=== PATIENT | female | born 1955 | race Caucasian/White ===

== ENCOUNTER 2017-04-02 18:38 | Emergency (ER) | payer MEDICAID ==
[~2017-04-02] VITALS: Ht 162.6 cm; Wt 67.1 kg
[~2017-04-02 18:38] MED LIST: ASPI81TA2 PO; ATEN50TA PO; LORA-258 PO; METF500T4 PO; TELM80TA2 PO
--- NOTE | 2017-04-02 19:05 | NUR ---
PT BIB SON, PT AMBULATORY TO ER BED 2 C/O LEFT FOOT PAIN S/P DANCING 2 DAYS AGO. PT AOX3 RR EVEN AND UNLABORED. NO SOB NOTED. NAD NOTED. NO NVD AT THIS TIME. PT WAITING FOR MD LYNCH.
--- NOTE | 2017-04-02 19:05 | NUR ---
PAC PRUSHA AT BEDSIDE FOR EVAL.
[2017-04-02] MEDS ORDERED: ACETAMINOPHEN W/ CODEINE#3 1 EA TABLET ONE (19:15)
--- NOTE | 2017-04-02 19:18 | NUR ---
PT REFUSED TYLENOL -COD 3. STATES "IT MAKES MY STOMACH HURT" JOANNA DIXON MADE AWARE.
--- NOTE | 2017-04-02 19:24 | NUR ---
RADIOLOGY AT BEDSIDE FOR LEFT FOOT XRAY
[2017-04-02] MEDS ORDERED: ACETAMINOPHEN W/ CODEINE#3 1 EA TABLET PO ONE (19:30)
[2017-04-02] MEDS ORDERED: IBUPROFEN 600 MG TABLET PO ONE ×2 (20:00→20:14)
[2017-04-02 21:24] VITALS: BP 132/57
== END 2017-04-02 21:25 | disposition home or self-care (01) ==
LOC: ER 18:44
DX: M79.675 Pain in left toe(s) (principal); E11.9 Type 2 diabetes mellitus without complications; I10 Essential (primary) hypertension; Z79.82 Long term (current) use of aspirin; Z88.0 Allergy status to penicillin; Z91.040 Latex allergy status; Z88.8 Allergy status to other drugs, medicaments and biological substances; Z90.710 Acquired absence of both cervix and uterus
CPT/HCPCS: 73620; 99284; A4606; Z7610

== ENCOUNTER 2017-12-03 16:15 | Emergency (ER) | payer OTHER ==
[~2017-12-03] VITALS: Ht 157.5 cm; Wt 72.6 kg
[~2017-12-03 16:15] MED LIST changes: +ASPI-1169 PO; -ASPI81TA2 PO; +METF-440 PO; -METF500T4 PO
[2017-12-03 16:18] VITALS: BP 144/80
[2017-12-03] MEDS ORDERED: ACETAMINOPHEN 325 MG TABLET ONE (16:57)
[2017-12-03] MEDS ORDERED: ACETAMINOPHEN 325 MG TABLET PO ONE (17:00)
[2017-12-03] MEDS ORDERED: IBUPROFEN 400 MG TABLET ONE (17:02)
[2017-12-03] MEDS ORDERED: LIDOCAINE 1%-EPI 1:100,000 20 ML VIAL TP ONE (17:30)
[2017-12-13] MEDS ORDERED: ACETAMINOPHEN 325 MG TABLET PO ONE (12:30)
--- NOTE | 2018-01-03 15:33 | NUR ---
inputted telephone order for ibuprofen 400mg. but wasted due to patient refusal
[2018-01-03] MEDS ORDERED: IBUPROFEN 400 MG TABLET PO ONE (16:00)
== END 2017-12-03 18:32 | disposition home or self-care (01) ==
LOC: ER 16:17
DX: M25.512 Pain in left shoulder (principal); M79.622 Pain in left upper arm; I10 Essential (primary) hypertension; E11.9 Type 2 diabetes mellitus without complications; Z88.0 Allergy status to penicillin; Z90.710 Acquired absence of both cervix and uterus; Z79.82 Long term (current) use of aspirin; X50.0XXA Overexertion from strenuous movement or load, initial encounter; Y93.89 Activity, other specified; Y92.89 Other specified places as the place of occurrence of the external cause; Y99.8 Other external cause status
CPT/HCPCS: 73030-TC; A4606; Z7610